=== PATIENT | male | born 2000 | race Caucasian/White ===

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

== ENCOUNTER → 2023-02-01 | Outpatient (CLI) | payer OTHER ==
--- NOTE | 2023-02-01 10:26 | XR ---
EXAMINATION TYPE: XR cervical spine comp DATE OF EXAM: 02/01/2023 10:19 AM CLINICAL INDICATION:Male, 22 years old with history of M54.2 cervicalgia; COMPARISON: None TECHNIQUE: The cervical spine was imaged in frontal, lateral, odontoid and bilateral oblique. FINDINGS: The osseous structures show normal alignment without evidence of an acute fracture. No significant ve rtebral body osteophytes or facet joint arthropathy. The intervertebral disk spaces are preserved. Pe dicles are intact. Soft tissues are within normal limits. The odontoid appears intact. The neural fo ramen appear patent bilaterally. Mild osteophyte formation of these cervical spine and minimal facet and uncovertebral arthropathy. IMPRESSION: 1. No fracture or dislocation. 2. Mild degenerative disc disease changes of the cervical spine.
[2023-02-01 12:42] LABS: Basophils # (A) 0.06 X 10*3/uL (0.00-0.10); Basophils % (A) 1.1 %; Eosinophils # (A) 0.13 X 10*3/uL (0.04-0.35); Eosinophils % (A) 2.3 %; HGB 15.4 d/dL (13.0-17.0); Lymphocytes # (A) 1.66 X 10*3/uL (0.90-5.00); Lymphocytes % (A) 29.1 %; MCH 30.9 pg (27.0-32.0); MCHC 34.2 d/dL (32.0-37.0); MCV 90.2 FL (80.0-97.0); Mean Platelet Volume 9.8 FL (9.5-12.2); Monocytes # (A) 0.49 X 10*3/uL (0.20-1.00); Monocytes % (A) 8.6 %; NRBC Per 100 WBC 0 X 10*3/uL (0.00-0.01); Neutrophils # (A) 3.35 X 10*3/uL (1.80-7.70); Neutrophils % (A) 58.5 %; Platelet Count 280 X 10*3/uL (140-440); RBC 4.99 X 10*6/uL (4.40-5.60); RDW 11.6 % (11.5-14.5); WBC 5.71 X 10*3/uL (4.50-10.00)
[2023-02-01 13:22] LABS: Erythrocyte Sedimentation Rate 1 mm/Hr (0-15)
[2023-02-01 14:34] LABS: ALT 27 U/L (10-49); AST 24 U/L (14-35); Albumin 4.8 d/dL (3.8-4.9); Alkaline Phosphatase 92 U/L (41-126); BUN/Creat Ratio 12.25 Ratio (12.00-20.00); Blood Urea Nitrogen 9.8 mg/dL (9.0-27.0); C Reactive Protein <0.30 mg/dL (0.00-0.80); Calcium 10.6 mg/dL (8.7-10.3); Carbon Dioxide 28.7 mmol/L (21.6-31.8); Chloride 104 mmol/L (96-109); Glucose 87 mg/dL (70-110); Potassium 4.6 mmol/L (3.5-5.5); Sodium 142 mmol/L (135-145); Total Bilirubin 1.2 mg/dL (0.3-1.2); Total Protein 6.8 d/dL (6.2-8.2)
== END | disposition home or self-care (01) ==
LOC: LABWHC1 09:34
PROVIDERS: ATTEND Pediatrics Adolescent Medicine
DX: I49.8 Other specified cardiac arrhythmias (principal); E55.9 Vitamin D deficiency, unspecified; M50.30 Other cervical disc degeneration, unspecified cervical region; R55 Syncope and collapse; R42 Dizziness and giddiness; R94.31 Abnormal electrocardiogram [ECG] [EKG]
CPT/HCPCS: 36415; 72050; 80053; 82306; 84439; 84443; 85025; 85652; 86140; 86663; 86664; 86665; 86738; 93005

== ENCOUNTER → 2024-02-03 | Outpatient (CLI) | payer BC ==
--- NOTE | 2024-02-03 09:54 | MR ---
INDICATION: Patient age:Male; 23 years old; Reason for study: M54.2 Cervicalgia M54.12; R51.9; [facility]. COMPARISON: MR brain 04/15/2016, CT brain 11/25/2012, cervical spine radiograph 01/05/2024, 02/01/2023. TECHNIQUE: Multi planar, multi sequence imaging was performed through the brain and cervical spine wi thout administration of contrast. FINDINGS: The vincent-white junctions, ventricular system, basal cisterns appear unremarkable. Posterior right ext ra-axial cerebellar fossa incidental arachnoid cyst measuring 2.7 x 1.0 cm. No significant change fro m prior exams. Diffusion-weighted imaging shows no evidence of restricted diffusion to suggest acute/ subacute infarct. Intracranial arterial flow voids are maintained. Midline structures show no abnorma lity. No FLAIR signal abnormalities. The susceptibility weighted images do not reveal any evidence fo r micro-hemorrhage. The bone marrow signal is within normal limits. The globes are unremarkable. Mild mucosal thickening inferior bilateral maxillary sinuses and bilateral ethmoid air sinuses. Alignment: The cervical vertebral bodies have preserved heights. Alignment is within normal limits gi donal patient positioning. Bones: Bone signal is within normal limits. Cord: The spinal cord is unremarkable with regards to their signal intensity and morphology. Discs: Minimal multilevel disc desiccation. C2-C3: No significant disc pathology. The spinal canal is patent. No neural foraminal stenosis. C3-C4: No significant disc pathology. The spinal canal is patent. Uncovertebral joint hypertrophy wi th mild right neural foraminal stenosis. Left neural foramen is patent. C4-C5: No significant disc pathology. The spinal canal is patent. No neural foraminal stenosis. C5-C6: Mild broad-based disc bulge without significant effacement of the anterior thecal sac. No jammie ral foraminal stenosis. C6-C7: No significant disc pathology. The spinal canal is patent. No neural foraminal stenosis. C7-T1: No significant disc pathology. The spinal canal is patent. No neural foraminal stenosis. Other: None. IMPRESSION: 1. No evidence of acute/subacute infarct or FLAIR signal abnormality. 2. Incidental stable right cerebellar fossa arachnoid cyst. 3. No evidence for disc herniation or significant spinal canal stenosis. 4. Minimal disc degeneration with uncovertebral joint hypertrophy as described above. [facility], , 02/03/2024 9:52 AM
== END | disposition home or self-care (01) ==
LOC: RADMRIMAIN 05:38
PROVIDERS: ATTEND Orthopaedic Surgery
DX: M50.10 Cervical disc disorder with radiculopathy, unspecified cervical region (principal); M47.22 Other spondylosis with radiculopathy, cervical region; R51.9 Headache, unspecified; G93.0 Cerebral cysts
CPT/HCPCS: 70551; 72141

== ENCOUNTER → 2024-04-08 | Outpatient (CLI) | payer BC ==
[2024-04-08 09:01] VITALS: BP 140/58; PULSE 69; RESP 16
--- NOTE | 2024-04-08 15:00 | P.PAINPG ---
PQRS Measure Charge Sheet Comment: HISTORY OF PRESENT ILLNESS: A 23 yr old male w mother at side as a referral from [facility] presents today w severe and chronic neck pain > 3 mo secondary to radiculopathy, spondylosis and facet arthropathy without myelopathy for evaluation. Pt states pain level is provoked at 6 /10 in intensity, constant, localized in the mid to lower cervical spine, predominantly axial, achy in character w occasional shooting pain towards . Pain is provoked by . Pain is alleviated by chiropractic treatments semi weekly x 8 mo which ended in Jan 2024, physician guided home exercises daily since Dec 2023, medications (Tyl, Aleve), topical Aspercreme, repositioning and rest . Cervical disability score at 10. PMH: No Reported History PSH: Ear Surgery, L Wrist Fracture (age 15) SH: Negative x3 FH: Non contributory All: See list Meds: See list REVIEW OF ORGAN SYSTEMS: CONSTITUTIONAL: No fevers or chills. No recent weight loss. NEUROLOGICAL: + numbness and tingling along the distal extremities. No seizure disorders or headaches. MUSCULOSKELETAL: + pain PSYCHIATRIC: Denies current depression or suicidal thoughts. Physical Examinations : Constitutional : Cooperative , not in acute distress . Neurologic : Cranial nerve II to XII intact. No focal neurological deficits. Psychiatric : alert & oriented x 3. Matching mood & appropriate affect. Judgment & insight intact. Musculoskeletal : Cervical Spine Motor strength in the deltoid and biceps: Normal right side. Normal Left side Motor strength biceps and the wrist extensors: Normal right side . Normal left side Motor strength in the triceps muscle: Normal right side. Normal left side Deep tendon reflexes: Normal at the biceps. Normal at Brachioradialis. Normal at triceps Vertebral body tenderness to deep palpation over C6 Cervical facet loading test: positive bilaterally Spurling test: positive bilaterally Neck distraction test: positive bilaterally C6-C7 Talita sign: positive bilaterally Lumbar spine Motor strength lower extremities ,thigh and legs 5/5 Right side , 5/5 Left side Deep tendon reflexes : Normal Knee Jerk. Normal Ankle Jerk Vertebral body tenderness over Ponce Test positive Lumbar facet Loading Test: positive Right / positive Left Range of motion of the lumbar spine Flexion 30 degrees, extension 10 degrees Straight Leg Raise test: Left/ Right positive at degrees Edson test: positive right / positive left. Severe tenderness over the Sacroiliac joint on the Right / Left sides Pjlen test: positive bilaterally Seated flexion test: positive bilaterally. Sacral spine : Severe tenderness over the Sacroiliac joint: right side / left side Range of motion: Flexion of the lumbar spine <60 degrees Range of motion: Extension of the lumbar spine <20 degrees Gaenslen's Test positive Edson test: positive right side / left side Thigh Thrust Test Sacral Thrust Test Imaging: MRI non contrast brain / cervical spine from 02/03/24 reviewed Assessment/ Plan : C5-C6 radiculopathy Recommendation of ZULMA C6-C7 #1. Risks, benefits of procedure discussed and patient verbalized understanding. Admits to anti- coagulant use or medical history of diabetes. Protocol for discontinuation/ continuation of medications danette procedure discussed. All questions answered. I have spent greater than 30 minutes on patient care today. Dr Aden was available by phone for the evaluation of this patient. The time was used to review the medical records including relevant urine studies and Prescription history (MAPs), review of the available imaging, evaluation and examination of the patient, coordination of care with the medical staff and if applicable referring physicians, as well as creation of the medical record PQRS Narrative: Smoking Status Never smoker Home Medications: Ambulatory Orders Acetaminophen-Codeine 300-30mg [Tylenol #3] 1 each PO Q6H PRN #20 tablet 07/16/15 diazePAM [Valium] 5 mg PO DAILY 1 Days #2 tab 04/08/24 Controlled Substance Measures - Controlled Substance Measures Is patient prescribed a controlled substance at discharge?: Yes When asked, does pt state using other controlled substances?: Yes If prescribed controlled substance>3 days was MAPS reviewed?: Prescribed <3 Days
== END ==
LOC: PNWHC3 08:01
PROVIDERS: ATTEND Specialist
DX: M54.12 Radiculopathy, cervical region (principal); G89.29 Other chronic pain
CPT/HCPCS: 99211

== ENCOUNTER 2024-05-28 07:03 | Day surgery (SDC) | payer BC ==
[~2024-05-28 07:03] MED LIST: LACTATED RINGERS 1,000 ML IV SCH
[2024-05-28] MEDS ORDERED: DEXAMETHASONE SOD PHOSPHATE 10 MG/ML 1 ML VIAL ONE (07:44)
[2024-05-28] MEDS ORDERED: IOPAMIDOL M200 10 ML VIAL ONE (07:44)
[2024-05-28 07:45] VITALS: TEMP 98
--- NOTE | 2024-05-28 07:53 | P.PCN ---
Date of Procedure: 05/28/24 Procedure(s) Performed: . PROCEDURE 1. Cervical epidural steroid injection under fluoroscopic guidance, C6-7 (fluoroscopy images available in the radiology department ) 2. Cervical epidurogram. PREOPERATIVE DIAGNOSIS: 1- Cervical Degenerative Disc Diseases 2- Cervical radiculopathy., 3-cervical spondylosis with cervical Facet arthropathy without myelopathy. POSTOPERATIVE DIAGNOSIS: : 1- Cervical Degenerative Disc Diseases , 2- Cervical radiculopathy. 3-cervical spondylosis with cervical Facet arthropathy without myelopathy. ANESTHESIA: Local anesthesia with lidocaine 1% 3 ml only EBL 0 PROCEDURE INDICATION: The patient with neck pain and radiculitis unresponsive to conservative treatment consents for procedure. PROCEDURE DESCRIPTION / TECHNIQUE: The patient was seen and identified in the preoperative area. Risks, benefits, complications, including but not limited to infections ,bleeding , allergic reactions to the medications ,and not complete pain releife, and alternatives were discussed with the patient, the patient agreed to proceed with the procedure and signed the consent. Patient was taken to the OR and time out was completed. The patient was placed in the prone position on the procedure table. A pillow was placed under the patients chest to increase the cervical interlaminar space. The cervical area was prepped and draped in the usual sterile fashion. Vital signs were closely monitored during the procedure. Using anterior-posterior fluoroscopy, the C6-7 interlaminar space was identified and the skin over this site was marked and then infiltrated with 1% lidocaine subcutaneously. Subsequently, a 20-gauge 3-1/2-inch Tuohy epidural needle was inserted and advanced toward the epidural space by means of the ``hanging-drop technique and guided by AP and lateral fluoroscopy. The correct needle position in the epidural space was verified with the injection of 2 mL of the water soluble contrast dye Isovue-200 and observing an excellent epidurogram with the epidural spread of the dye, after negative aspiration for blood and CSF and in the absence of paresthesias. then, mixture containing 20 mg Dexamethasone and 2 ml of preservative-free normal saline injected and a washout of epidurogram was seen. Needle was withdrawn intact, skin was cleansed, and bandages were applied. Complications= none. Disposition= patient was placed in supine position and transferred to the recovery room area in stable condition and there was no evidence of upper or lower extremity motor or sensory deficit after the procedure patient was discharged from recovery room after discharge criteria met and home discharge instructions was given by the staff and patient will follow with the pain clinic in 2-4 weeks
[2024-05-28 08:03] VITALS: RESP 16
--- NOTE | 2024-05-28 08:10 | FL ---
EXAMINATION TYPE: FL guided pain mgmt statistic DATE OF EXAM: 05/28/2024 CLINICAL INDICATION: Male, 23 years old with history of PAIN; [facility], TECHNIQUE: Fluoroscopy. COMPARISON: None. FINDINGS: Fluoroscopic guidance was provided during pain relief procedure performed by Dr. Aden . A total of 4.6 seconds of fluoroscopic time was utilized during the procedure and one image was ac quired. Image acquired shows needle localization near the cervical thoracic junction. Total DAP: 0.44694 mGym2. IMPRESSION: As Above. [facility], , 05/28/2024 8:08 AM
[2024-05-28 08:23] VITALS: BP 109/68; PULSE 91
== END 2024-05-28 08:24 | disposition home or self-care (01) ==
LOC: ORPAIN 07:03
PROVIDERS: ATTEND Specialist
DX: M47.22 Other spondylosis with radiculopathy, cervical region (principal); M50.123 Cervical disc disorder at C6-C7 level with radiculopathy; Z79.1 Long term (current) use of non-steroidal anti-inflammatories (NSAID)
CPT/HCPCS: 62321; J1100; Q9966

== ENCOUNTER → 2024-06-17 | Outpatient (CLI) | payer BC ==
[2024-06-17 09:48] VITALS: BP 127/80; PULSE 71; RESP 16
--- NOTE | 2024-06-17 14:03 | P.PAINPG ---
PQRS Measure Charge Sheet Comment: HISTORY OF PRESENT ILLNESS: A 23 yr old male w mother at side presents today w severe and chronic neck pain > 3 mo secondary to radiculopathy, spondylosis and facet arthropathy without myelopathy for evaluation s/p ZULMA C6-C7 #1. Pt states he experienced 0% pain relief s/p procedure. Pt states pain level is provoked at 4-6 /10 in intensity, constant, localized in the cervical spine, predominantly axial, achy in character w occasional shooting pain towards the head. Pain is provoked by hyperextension. Pain is alleviated by chiropractic treatments semi weekly x 8 mo which ended in Jan 2024, physician guided home exercises daily since Dec 2023, medications , topical, repositioning and rest . Interventional procedures include ZULMA C6-C7 x1 Medications include Tyl, Aleve, Aspercreme REVIEW OF ORGAN SYSTEMS: CONSTITUTIONAL: No fevers or chills. No recent weight loss. NEUROLOGICAL: + numbness and tingling along the distal extremities. No seizure disorders or headaches. MUSCULOSKELETAL: + pain PSYCHIATRIC: Denies current depression or suicidal thoughts. Physical Examinations : Constitutional : Cooperative , not in acute distress . Neurologic : Cranial nerve II to XII intact. No focal neurological deficits. Psychiatric : alert & oriented x 3. Matching mood & appropriate affect. Judgment & insight intact. Musculoskeletal : Cervical Spine Motor strength in the deltoid and biceps: Normal right side. Normal Left side Motor strength biceps and the wrist extensors: Normal right side . Normal left side Motor strength in the triceps muscle: Normal right side. Normal left side Deep tendon reflexes: Normal at the biceps. Normal at Brachioradialis. Normal at triceps Vertebral body tenderness to deep palpation over C3 Cervical facet loading test: positive bilaterally Spurling test: positive bilaterally Neck distraction test: positive bilaterally C3-C4 Talita sign: positive bilaterally Lumbar spine Motor strength lower extremities ,thigh and legs 5/5 Right side , 5/5 Left side Deep tendon reflexes : Normal Knee Jerk. Normal Ankle Jerk Vertebral body tenderness over Ponce Test positive Lumbar facet Loading Test: positive Right / positive Left Range of motion of the lumbar spine Flexion 30 degrees, extension 10 degrees Straight Leg Raise test: Left/ Right positive at degrees Edson test: positive right / positive left. Severe tenderness over the Sacroiliac joint on the Right / Left sides Gaenslen test: positive bilaterally Seated flexion test: positive bilaterally. Sacral spine : Severe tenderness over the Sacroiliac joint: right side / left side Range of motion: Flexion of the lumbar spine <60 degrees Range of motion: Extension of the lumbar spine <20 degrees Gaenslen's Test positive Edson test: positive right side / left side Thigh Thrust Test Sacral Thrust Test Imaging: MRI non contrast brain / cervical spine from 02/03/24 reviewed Assessment/ Plan : C5-C6 radiculopathy Recommendation of BL TFESI C3-C4 #2. Risks, benefits of procedure discussed and patient verbalized understanding. Admits to anti- coagulant use or medical history of diabetes. Protocol for discontinuation/ continuation of medications danette procedure discussed. All questions answered. I have spent greater than 30 minutes on patient care today. Dr Aden was available by phone for the evaluation of this patient. The time was used to review the medical records including relevant urine studies and Prescription history (MAPs), review of the available imaging, evaluation and examination of the patient, coordination of care with the medical staff and if applicable referring physicians, as well as creation of the medical record PQRS Narrative: Smoking Status Never smoker Hx Alcohol Use (MH) Yes Home Medications: Ambulatory Orders Acetaminophen Tab [Tylenol Tab] 1,000 mg PO Q6HR PRN 05/26/24 EPINEPHrine (Auto Inject) [Epipen] 0.3 mg IM ONCE PRN 05/26/24 Ibuprofen [Motrin Ib] 400 mg PO Q8H 05/26/24 Naproxen Sodium [Aleve] 220 mg PO DAILY PRN 05/26/24 diazePAM [Valium] 5 mg PO DAILY 1 Days #2 tab 06/17/24 Controlled Substance Measures - Controlled Substance Measures Is patient prescribed a controlled substance at discharge?: Yes When asked, does pt state using other controlled substances?: No If prescribed controlled substance>3 days was MAPS reviewed?: Prescribed <3 Days
== END ==
LOC: PNWHC3 07:58
PROVIDERS: ATTEND Specialist
DX: M54.12 Radiculopathy, cervical region (principal); Z91.048 Other nonmedicinal substance allergy status
CPT/HCPCS: 99211

== ENCOUNTER → 2024-07-09 | Day surgery (SDC) | payer BC ==
[2024-07-08 13:00] VITALS: BMI 24.4
[~2024-07-09] MED LIST changes: +DEXAMETHASONE SOD PHOSPHATE 10 MG/ML 1 ML VIAL ONE; +IOPAMIDOL M200 10 ML VIAL ONE
[2024-07-09 13:50] VITALS: RESP 16; TEMP 97.5
[2024-07-09] MEDS: IV FLUID CONTINUATION 1,000 ML IV ONE (14:21)
--- NOTE | 2024-07-09 14:22 | P.PCN ---
Date of Procedure: 07/09/24 Procedure(s) Performed: PREOPERATIVE DIAGNOSIS: 1-cervical radiculopathy . POSTOPERATIVE DIAGNOSIS: 1-cervical radiculopathy. PROCEDURE 1. Transforaminal epidural steroid injection under fluoroscopic guidance at bilateral C5-6 level. (Fluoroscopy images stored on file in the radiology Department ) 2. Cervical epidurogram . ANESTHESIA: Local with 1% lidocaine 4 ml. EBL: Minimal PROCEDURE INDICATION: The patient with neck pain and radiculopathy symptoms unresponsive to conservative treatment. PROCEDURE DESCRIPTION / TECHNIQUE: The patient was seen and identified in the preoperative area. Risks, benefits, complications, and alternatives were discussed with the patient. The patient agreed to proceed with the procedure and signed the consent, and vital signs were stable. Patient was taken to the OR and time out was completed. The patient was placed in the prone position on procedure table and a pillow was placed under the abdomen to reduce lumbar lordosis. The lumbosacral area was prepped and draped in the usual sterile fashion. Critical pause was taken. Vital signs were closely monitored during the procedure. Using oblique fluoroscopy, the chin of the `Chineduy dog at Right C5-6 level was identified, and the skin and deeper tissues just below was localized with 1% lidocaine. Subsequently, a 23-gauge 3.5-inch spinal needle was advanced under a tunneled view fluoroscopic guidance just underneath the chin of the `[place]uy dog at the right C5-6 Under lateral fluoroscopy, the needle was then advanced to the posterior border of the interforaminal space. After negative aspiration of CSF and blood and with no paresthesias, 1 mL Isovue 200 contrast dye was injected excellent epidurogram and outlining of the nerve root Subsequently, 2 mL of block solution containing 10 mg Dexamethasone and 1 mL of 0.9% normal saline PF was injected. Needle was removed and the same procedure was repeated at the left C5-6 level . At the end of the procedure, skin was cleansed, and bandages were applied. COMPLICATIONS:none DISPOSITION / PLANS: The patient was placed in a supine position and transferred to the recovery area in a stable condition for observation. There was no evidence of lower extremity motor or sensory deficit after the procedure. Patient was discharged from the recovery room after meeting discharge criteria. Home discharge instructions were given to the patient by the staff. The patient was reexamined prior to discharge.
--- NOTE | 2024-07-09 14:26 | FL ---
Fluoroscopy INDICATION: Pain FINDINGS: Fluoroscopy time: 15.4 seconds. Total dose area product (DAP) in uGy*m?, mGy*cm? (or similar): 0.39028 Images obtained: 0. Images document needle at the level of the lower cervical spine IMPRESSION: 1. Documentation of fluoroscopy. [facility], , 07/09/2024 2:24 PM
[2024-07-09 14:48] VITALS: BP 122/68; PULSE 69
== END ==
LOC: ORPAIN 13:20
PROVIDERS: ATTEND Specialist
DX: M54.12 Radiculopathy, cervical region (principal); Z91.048 Other nonmedicinal substance allergy status
CPT/HCPCS: 64479; J1100; Q9966

== ENCOUNTER → 2024-08-05 | Outpatient (CLI) | payer BC ==
[2024-08-05 08:09] VITALS: BP 123/77; PULSE 74; RESP 18; TEMP 98.3
--- NOTE | 2024-08-05 14:50 | P.PAINPG ---
PQRS Measure Charge Sheet Comment: HISTORY OF PRESENT ILLNESS: A 24 yr old male presents today w severe and chronic neck pain > 3 mo secondary to radiculopathy, spondylosis and facet arthropathy without myelopathy for evaluation s/p BL TFESI C5-C6 #2. Pt states he experienced 60 % pain relief x 4 wks s/p procedure. Pt states pain level is provoked at 4-6 /10 in intensity, constant, localized in the cervical spine, predominantly axial, achy in character without shooting pain. Pain is provoked by hyperextension. Pain is alleviated by chiropractic treatments semi weekly x 8 mo which ended in Jan 2024, physician guided home exercises daily since Dec 2023, medications , topical, repositioning and rest . Interventional procedures include ZULMA C6-C7 x1, BL TFESI C5-C6 x1 Medications include Tyl, Aleve, Aspercreme REVIEW OF ORGAN SYSTEMS: CONSTITUTIONAL: No fevers or chills. No recent weight loss. NEUROLOGICAL: + numbness and tingling along the distal extremities. No seizure disorders or headaches. MUSCULOSKELETAL: + pain PSYCHIATRIC: Denies current depression or suicidal thoughts. Physical Examinations : Constitutional : Cooperative , not in acute distress . Neurologic : Cranial nerve II to XII intact. No focal neurological deficits. Psychiatric : alert & oriented x 3. Matching mood & appropriate affect. Judgment & insight intact. Musculoskeletal : Cervical Spine Motor strength in the deltoid and biceps: Normal right side. Normal Left side Motor strength biceps and the wrist extensors: Normal right side . Normal left side Motor strength in the triceps muscle: Normal right side. Normal left side Deep tendon reflexes: Normal at the biceps. Normal at Brachioradialis. Normal at triceps Vertebral body tenderness to deep palpation over C3 Cervical facet loading test: positive bilaterally Spurling test: positive bilaterally Taut bands w twitch response over BL C3-T3 Neck distraction test: positive bilaterally C3-C4 Talita sign: positive bilaterally Lumbar spine Motor strength lower extremities ,thigh and legs 5/5 Right side , 5/5 Left side Deep tendon reflexes : Normal Knee Jerk. Normal Ankle Jerk Vertebral body tenderness over Ponce Test positive Lumbar facet Loading Test: positive Right / positive Left Range of motion of the lumbar spine Flexion 30 degrees, extension 10 degrees Straight Leg Raise test: Left/ Right positive at degrees Edson test: positive right / positive left. Severe tenderness over the Sacroiliac joint on the Right / Left sides Gaenslen test: positive bilaterally Seated flexion test: positive bilaterally. Sacral spine : Severe tenderness over the Sacroiliac joint: right side / left side Range of motion: Flexion of the lumbar spine <60 degrees Range of motion: Extension of the lumbar spine <20 degrees Gaenslen's Test positive Edson test: positive right side / left side Thigh Thrust Test Sacral Thrust Test Imaging: MRI non contrast brain / cervical spine from 02/03/24 reviewed Assessment/ Plan : C5-C6 radiculopathy Recommendation of BL TPIs C3-T3 #1. Risks, benefits of procedure discussed and patient verbalized understanding. All questions answered. I have spent greater than 30 minutes on patient care today. Dr Aden was available by phone for the evaluation of this patient. The time was used to review the medical records including relevant urine studies and Prescription history (MAPs), review of the available imaging, evaluation and examination of the patient, coordination of care with the medical staff and if applicable referring physicians, as well as creation of the medical record - Pain Location Neck Non-Pharmacological Interventions: Heat, Ice Pharmacological Interventions: Medication PQRS Narrative: Smoking Status Never smoker Hx Alcohol Use (MH) Yes Home Medications: Ambulatory Orders Acetaminophen Tab [Tylenol Tab] 1,000 mg PO Q6HR PRN 05/26/24 EPINEPHrine (Auto Inject) [Epipen] 0.3 mg IM ONCE PRN 05/26/24 Ibuprofen [Motrin Ib] 400 mg PO Q8H 05/26/24 Naproxen Sodium [Aleve] 220 mg PO DAILY PRN 05/26/24 diazePAM [Valium] 5 - 10 mg PO DIRECTED PRN 07/08/24 Controlled Substance Measures - Controlled Substance Measures Is patient prescribed a controlled substance at discharge?: Yes When asked, does pt state using other controlled substances?: No If prescribed controlled substance>3 days was MAPS reviewed?: Prescribed <3 Days
== END ==
LOC: PNWHC3 07:47
PROVIDERS: ATTEND Specialist
DX: M47.22 Other spondylosis with radiculopathy, cervical region (principal); Z91.018 Allergy to other foods
CPT/HCPCS: 99212

== ENCOUNTER 2024-09-10 07:27 | Day surgery (SDC) | payer BC ==
[2024-09-08 16:05] VITALS: BMI 23.7
[~2024-09-10 07:27] MED LIST changes: -DEXAMETHASONE SOD PHOSPHATE 10 MG/ML 1 ML VIAL ONE; -IOPAMIDOL M200 10 ML VIAL ONE
[2024-09-10 08:04] VITALS: TEMP 97.9
[2024-09-10] MEDS ORDERED: ROPIVACAINE 5 MG/ML 30 ML VIAL ONE (09:26)
[2024-09-10] MEDS ORDERED: methylPREDNISolone ACETATE 80 MG/ML 1 ML VIAL ONE (09:26)
--- NOTE | 2024-09-10 09:45 | P.PCN ---
Description of Procedure: Preprocedure diagnosis. Myofascial pain. Myofascial trigger point. Postprocedure diagnosis. As above. Procedure done. Myofascial trigger point injection with local anesthetics and steroid at 6 points. Anesthesia. In the OR continuous pulse ox, EKG, blood pressure, and verbal communication was maintained with the patient. Blood loss. None. Indication. Discussed with the patient procedure, alternatives and possible complications which may include infection, bleeding, nerve damage, aggravation of pain. Patient understands and all questions were answered. According to patient, he has been evaluated by neurosurgeon Dr. Bonilla in regards to MRI finding of cerebellar fossa cyst. He also relates that he was told by the surgeon that he is not a candidate for any surgery. Procedure note. After getting consent patient in the procedure area. Most tender points were identified and marked. A 25-gauge needle attached to syringe was introduced at the trigger points and after negative aspiration 5 mL solution are injected at each trigger point. I injected 4 trigger points in bilateral cervical paraspinal muscles, 2 trigger points in bilateral trapezius muscle. Total solution consists of 30 ml 0.5%Ropivacaine mixed with 80 mg Depomedrol. Disposition. Patient tolerated the procedure well. No complication. Discharged home in stable condition.
[2024-09-10 09:58] VITALS: BP 123/65; PULSE 65; RESP 16
== END 2024-09-10 10:09 | disposition home or self-care (01) ==
LOC: ORPAIN 07:27
PROVIDERS: ATTEND Pain Medicine Interventional Pain Medicine
DX: M79.18 Myalgia, other site (principal)
CPT/HCPCS: 20553; J2795; J1010